=== PATIENT | female | born 1955 | race Asian ===

== ENCOUNTER 2025-02-21 13:22 | Emergency (ER) | payer MEDICARE ==
[~2025-02-21] VITALS: Ht 157.5 cm; Wt 52.2 kg
[2025-02-21 13:24] VITALS: BP 142/87; TEMP 97.8
[2025-02-21 13:53] VITALS: O2SAT 100
== END 2025-02-21 13:53 | disposition home or self-care (01) ==
LOC: ER 13:22
DX: S80.811A Abrasion, right lower leg, initial encounter (principal); I10 Essential (primary) hypertension; E78.00 Pure hypercholesterolemia, unspecified; W54.0XXA Bitten by dog, initial encounter; Y93.89 Activity, other specified; Y92.89 Other specified places as the place of occurrence of the external cause; Y99.8 Other external cause status